=== PATIENT | male | born 1970 | race Hispanic/Latino ===

== ENCOUNTER 2018-03-03 22:01 | Emergency (ER) | payer OTHER ==
[2018-03-03 22:26] VITALS: O2SAT 99
[2018-03-03] MEDS ORDERED: Silver Sulfadiazine 1% CREAM (50 gm) ONE (22:52)
[2018-03-03] MEDS ORDERED: Tdap Vaccine 0.5 ml Vial (10-64 yrs) IM ONE ×2 (23:05→23:13)
[2018-03-03] MEDS ORDERED: Oxycodone/Acetaminophen 5/325 mg Tab PO STA (23:06)
[2018-03-03] MEDS ORDERED: Oxycodone/Acetaminophen 5/325 mg Tab ONE (23:12)
[2018-03-03 23:48] VITALS: BP 140/90; PULSE 80; RESP 18; TEMP 98
== END 2018-03-03 23:44 | disposition home or self-care (01) ==
LOC: H.ER 22:01
DX: T23.009A Burn of unspecified degree of unspecified hand, unspecified site, initial encounter (principal); X10.2XXA Contact with fats and cooking oils, initial encounter; Y93.G9 Activity, other involving cooking and grilling